=== PATIENT | male | born 1945 | race African-American/Black ===

== ENCOUNTER → 2016-11-29 | Day surgery (SDC) | payer OTHER ==
[~2016-11-29] VITALS: Ht 195.6 cm; Wt 157.4 kg
[~2016-11-29] MED LIST: ALLO300T2 PO; AMIO100T4 PO; AMLO10TA80 PO; BISO5TAB13 PO; CHOL20004 PO; CYAN10009 PO; FENTANYL CITRATE/PF 50MCG/ML 2ML VIAL ONE; FERR-63 PO; GLIP10TA10 PO; HYDR100T26 PO; HYDR25TA PO; INSU3INS6 SUBCUT; LEVO50TA8 PO; LIDOCAINE HCL 2% JELLY 5ML ONE; LIP40 PO; LOSA100T14 PO; MIDAZOLAM HCL 2 MG/2 ML VIAL ONE; MIDAZOLAM HCL 5 MG/5 ML VIAL ONE; OMEP20CA10 PO; POTA20TA75 PO; RIVA10TA PO; TETRACAINE/BENZOCAINE/BUTAMBEN 20 GM SPRAY MM ONE; ZOLP10TA2 PO
== END | disposition home or self-care (01) ==
LOC: CARD 10:11
PROVIDERS: ATTEND Specialist
DX: I48.91 Unspecified atrial fibrillation (principal); E03.9 Hypothyroidism, unspecified; E78.5 Hyperlipidemia, unspecified; I51.89 Other ill-defined heart diseases; I12.9 Hypertensive chronic kidney disease with stage 1 through stage 4 chronic kidney disease, or unspecified chronic kidney disease; N18.9 Chronic kidney disease, unspecified; M17.12 Unilateral primary osteoarthritis, left knee; J44.9 Chronic obstructive pulmonary disease, unspecified
CPT/HCPCS: 82962; 92960; 93005; 93312; 99152; 99153; J2250; J3010